=== PATIENT | male | born 1960 | race Caucasian/White ===

== ENCOUNTER 2022-06-13 21:19 | Emergency (ER) | payer OTHER ==
[~2022-06-13] VITALS: Ht 165.1 cm; Wt 96.2 kg
[2022-06-13 21:27] VITALS: BP 126/83
--- NOTE | 2022-06-13 21:27 | NUR ---
pt to bed 06 ambulatory
--- NOTE | 2022-06-13 21:32 | NUR ---
61 yo/m presents to ed w c/o L pointer finger lac 9/10 pain, with a saw x 30 mins ago, s/p sawing some wood. Lac noted to finger w bleeding controlled, + sensation, +rom. pmh: diabetes, hernia, enlarged liver w lesion allergies: penicillins
[2022-06-13] MEDS ORDERED: KETOROLAC 30 MG/ML VIAL IM ONE (21:40)
[2022-06-13] MEDS ORDERED: LIDOCAINE 2% 1000 MG/50 ML VIAL INJ ONE (22:10)
[2022-06-13] MEDS ORDERED: BACITRACIN OINT 500 UNITS/GM PKT TP ONE (23:10)
[2022-06-13] MEDS ORDERED: SULF-59 PO (23:44)
[2022-06-13 23:48] VITALS: BP 110/70
== END 2022-06-13 23:48 | disposition home or self-care (01) ==
LOC: MED 21:19
DX: S61.211A Laceration without foreign body of left index finger without damage to nail, initial encounter (principal); Z88.0 Allergy status to penicillin; Z79.899 Other long term (current) drug therapy; W18.30XA Fall on same level, unspecified, initial encounter; Y93.89 Activity, other specified; Y92.89 Other specified places as the place of occurrence of the external cause; Y99.8 Other external cause status
CPT/HCPCS: 12001; 73130; 90471; 90715; 96372; 99284; J1885; J2001; Q0092

== ENCOUNTER 2022-11-04 16:52 | Inpatient (IN) | payer OTHER ==
[~2022-11-04] VITALS: Ht 167.6 cm; Wt 88.5 kg
[~2022-11-04 16:52] MED LIST: SULF-59 PO
[2022-11-04 17:12] VITALS: BP 128/72; PULSE 106; RESP 18; TEMP 99.6; O2SAT 97
[2022-11-04] MEDS ORDERED: VANCOMYCIN 1,000 MG in DEXTROSE 5% 250 ML IV ONE (18:45)
[2022-11-04] MEDS ORDERED: cefTRIAXone 1,000 MG VIAL ONE (19:56)
[2022-11-04] MEDS ORDERED: VANCOMYCIN 1,000 MG VIAL ONE (21:24)
[2022-11-04 22:05] LABS: BASOPHILS # (AUTO) 0.1 K/uL (0.00-0.22); BASOPHILS % (AUTO) 0.7 % (0.0-2.0); EOSINOPHILS # (AUTO) 0.1 K/uL (0-0.4); EOSINOPHILS % (AUTO) 1.1 % (0.0-4.0); HEMATOCRIT 40.7 % (36-52); HEMOGLOBIN 13.7 g/dL (12.0-18.0); LYMPHOCYTES # (AUTO) 2.3 K/uL (2.0-11.5); LYMPHOCYTES % (AUTO) 21.2 % (20.5-51.1); MEAN CORPUSCULAR HEMOGLOBIN 28 pg (27-31); MEAN CORPUSCULAR HGB CONC 34 g/dL (33-37); MEAN CORPUSCULAR VOLUME 84.4 fL (80-94); MONOCYTES # (AUTO) 0.8 K/uL (0.8-1.0); MONOCYTES % (AUTO) 7.3 % (1.7-9.3); NEUTROPHILS # (AUTO) 7.5 K/uL (1.8-7.7); NEUTROPHILS % (AUTO) 69.7 % (42.2-75.2); PLATELET COUNT (AUTO) 226 K/uL (140-450); RED BLOOD CELL COUNT(AUTO) 4.82 MIL/uL (4.20-6.10); RED CELL DISTRIBUTION WIDTH 14.3 % (11.6-13.7); WHITE BLOOD COUNT (AUTO) 10.8 K/uL (4.8-10.8)
[2022-11-04] MEDS ORDERED: ONDANSETRON 4 MG/2 ML VIAL IVP PRN (22:35)
[2022-11-04] MEDS ORDERED: MORPHINE SULFATE 2 MG/ML SYR IVP PRN (22:35)
[2022-11-04] MEDS ORDERED: VANCOMYCIN PER PHARMACY MC PRN (22:35)
[2022-11-04] MEDS ORDERED: ACETAMINOPHEN 325 MG TAB PO PRN (22:35)
[2022-11-04] MEDS ORDERED: HYDROcodone/APAP 5/325 MG 1 TAB TAB PO PRN (22:35)
[2022-11-04] MEDS ORDERED: LORazepam 2 MG/ML VIAL IVP PRN (22:35)
[2022-11-04 22:51] LABS: ANION GAP 11.6 (8-16); CALCIUM 8.7 mg/dL (8.5-10.1); CARBON DIOXIDE 25.4 mmol/L (21-32); CREATININE 0.7 mg/dL (0.6-1.3); TOTAL BILIRUBIN 0.7 mg/dL (0.0-1.0)
[2022-11-04] MEDS ORDERED: VANCOMYCIN 1,500 MG in DEXTROSE 5% 500 ML IV SCH (23:25)
[2022-11-04 23:45] VITALS: BP 123/65; PULSE 92; RESP 20; TEMP 98.1; O2SAT 98
[2022-11-05] MEDS: NACL 0.9% 1,000 ML IV SCH ×2 (00:03→11:58)
[2022-11-05 00:04] VITALS: PULSE 103
[2022-11-05 05:34] VITALS: BP 92/59; RESP 18; TEMP 98.3; O2SAT 98
[2022-11-05] MEDS ORDERED: PIPERACILLIN/TAZOBACTAM 3.375 GM VIAL IV ONE (05:35)
[2022-11-05] MEDS: PIPERACILLIN/TAZOBACTAM 3.375 GM in DEXTROSE 5% 50 ML IV SCH ×2 (05:49→12:49)
[2022-11-05 06:23] LABS: BASOPHILS % (AUTO) 0.5 % (0.0-2.0); EOSINOPHILS # (AUTO) 0.1 K/uL (0-0.4); EOSINOPHILS % (AUTO) 1.6 % (0.0-4.0); HEMATOCRIT 41.2 % (36-52); HEMOGLOBIN 13.8 g/dL (12.0-18.0); MEAN CORPUSCULAR HEMOGLOBIN 28 pg (27-31); MEAN CORPUSCULAR HGB CONC 33 g/dL (33-37); MEAN CORPUSCULAR VOLUME 85.1 fL (80-94); MONOCYTES # (AUTO) 0.7 K/uL (0.8-1.0); MONOCYTES % (AUTO) 7.8 % (1.7-9.3); NEUTROPHILS # (AUTO) 6.2 K/uL (1.8-7.7); NEUTROPHILS % (AUTO) 68.1 % (42.2-75.2); PLATELET COUNT (AUTO) 219 K/uL (140-450); RED BLOOD CELL COUNT(AUTO) 4.85 MIL/uL (4.20-6.10); RED CELL DISTRIBUTION WIDTH 14.4 % (11.6-13.7); WHITE BLOOD COUNT (AUTO) 9.1 K/uL (4.8-10.8)
[2022-11-05 06:56] LABS: ALBUMIN 2.8 g/dL (3.4-5.0); CALCIUM 8.4 mg/dL (8.5-10.1); CARBON DIOXIDE 25.9 mmol/L (21-32); CREATININE 0.7 mg/dL (0.6-1.3); MAGNESIUM 1.7 mg/dL (1.8-2.4); POTASSIUM 3.9 mmol/L (3.5-5.1); TOTAL BILIRUBIN 0.8 mg/dL (0.0-1.0); TOTAL PROTEIN, SERUM 6.6 g/dL (6.4-8.2)
[2022-11-05] MEDS ORDERED: VANCOMYCIN 1GM/DEXT 5% PREMIX 200 ML IV SCH (09:00)
[2022-11-05] MEDS ORDERED: VANCOMYCIN 1.25GM PREMIX 250 ML IV SCH (09:00)
[2022-11-05] MEDS ORDERED: ENOXAPARIN 40 MG/0.4 ML SYR SUBQ SCH (09:00)
== END 2022-11-05 17:55 | disposition left against medical advice (07) | DRG 383 ==
LOC: MED 16:52 → MMU 22:34 → MTU 23:26
PROVIDERS: ADMIT Hospitalist; ATTEND Hospitalist
DX: L03.011 Cellulitis of right finger (principal); E44.1 Mild protein-calorie malnutrition; D72.829 Elevated white blood cell count, unspecified; Z53.29 Procedure and treatment not carried out because of patient's decision for other reasons; Z79.899 Other long term (current) drug therapy; Z88.0 Allergy status to penicillin; Z68.31 Body mass index [BMI] 31.0-31.9, adult
CPT/HCPCS: 36415; 73130; 73202; 80053; 83735; 85025; 85651; 87040; 87081; 96365; 96366; 96367; 99285; J0696; J1650; J2543; J3370; J3372; J7060

== ENCOUNTER 2023-01-11 15:26 | Emergency (ER) | payer OTHER ==
[~2023-01-11] VITALS: Ht 165.1 cm; Wt 87.5 kg
[2023-01-11 15:51] VITALS: BP 111/76; PULSE 100; RESP 18; TEMP 97.6; O2SAT 97
[2023-01-11] MEDS ORDERED: SULF-59 PO (17:22)
[2023-01-11] MEDS ORDERED: CLIN-223 PO (17:22)
[2023-01-11] MEDS ORDERED: IBUP-2213 PO (17:22)
== END 2023-01-11 17:32 | disposition home or self-care (01) ==
LOC: MED 15:26
DX: S60.812A Abrasion of left wrist, initial encounter (principal); L03.114 Cellulitis of left upper limb; E11.9 Type 2 diabetes mellitus without complications; Z79.2 Long term (current) use of antibiotics; Z79.1 Long term (current) use of non-steroidal anti-inflammatories (NSAID); Z88.0 Allergy status to penicillin; W20.8XXA Other cause of strike by thrown, projected or falling object, initial encounter; Y93.89 Activity, other specified; Y92.89 Other specified places as the place of occurrence of the external cause; Y99.8 Other external cause status
CPT/HCPCS: 73090; 73110; 99284

== ENCOUNTER 2023-03-30 13:07 | Emergency (ER) | payer MEDICAID, OTHER ==
[~2023-03-30] VITALS: Ht 167.6 cm; Wt 81.6 kg
[~2023-03-30 13:07] MED LIST changes: +CLIN-223 PO; +IBUP-2213 PO
[2023-03-30 13:12] VITALS: BP 124/71; PULSE 103; RESP 18; TEMP 98.2; O2SAT 97
[2023-03-30] MEDS ORDERED: DOXY-690 PO (16:20)
[2023-03-30] MEDS: LIDOCAINE/EPI 1% 1:100000 20 ML VIAL INJ ONE (17:10)
[2023-03-30 17:22] VITALS: BP 124/71; PULSE 98; RESP 18; TEMP 98.2; O2SAT 97
== END 2023-03-30 18:20 | disposition home or self-care (01) ==
LOC: MED 13:07
DX: S02.31XA Fracture of orbital floor, right side, initial encounter for closed fracture (principal); J34.0 Abscess, furuncle and carbuncle of nose; Z79.899 Other long term (current) drug therapy; X58.XXXA Exposure to other specified factors, initial encounter; Y93.89 Activity, other specified; Y92.89 Other specified places as the place of occurrence of the external cause; Y99.8 Other external cause status
CPT/HCPCS: 10060; 70450; 70486; 72125; 99284; J2001